=== PATIENT | male | born 1965 | race Two or more races ===

== ENCOUNTER 2022-10-27 07:40 | Day surgery (SDC) | payer OTHER ==
[~2022-10-27] VITALS: Ht 177.8 cm; Wt 98.9 kg
[~2022-10-27 07:40] MED LIST: SYNTHROID125 MCG PO
[2022-10-27] MEDS ORDERED: CILOXAN5 ML OTIC (12:14)
[2022-10-27] MEDS ORDERED: ANTIVERT25 M2 PO (12:15)
[2022-10-27] MEDS ORDERED: CEPHALEXIN500 MG PO (12:15)
[2022-10-27] MEDS ORDERED: ONDANSETRON ODT4 MG PO (12:16)
== END 2022-10-27 15:55 | disposition home or self-care (01) ==
LOC: CIR.AMB 07:40
PROVIDERS: ATTEND Otolaryngology Otology & Neurotology
DX: H80.82 Other otosclerosis, left ear (principal); H90.A12 Conductive hearing loss, unilateral, left ear with restricted hearing on the contralateral side; Z20.822 Contact with and (suspected) exposure to COVID-19